=== PATIENT | female | born 1960 | race Caucasian/White ===

== ENCOUNTER 2018-01-14 09:45 | Day surgery (SDC) | payer OTHER ==
[~2018-01-14] VITALS: Ht 167.6 cm; Wt 113.4 kg
[~2018-01-14 09:45] MED LIST: AMBIEN10 MG PO; FLUOXETINE HCL20 M1 PO; LOSARTAN POTASS50 MG PO; OMEPRAZOLE20 MG PO; PRAVASTATIN SOD80 MG PO
[2018-01-14] MEDS ORDERED: ACETAMINOPHEN-1 EACH PO (10:14)
[2018-01-14] MEDS ORDERED: NORCO 5-325 TA1 EACH PO (10:15)
--- NOTE | 2018-01-14 14:11 | NUR ---
ARRIVED TO PACU WITH IV IN PLACE IN LEFT HAND
--- NOTE | 2018-01-14 14:20 | NUR ---
01/14/18 1420 Anthony Herrera ARRIVED TO PACU MOANING. RECENTLY TREATED FOR PAIN PER INFECTION CONTROL MANAGER. C/O NAUSEA. VERBAL ORDERS RECIEVED TO START ALBUTEROL TX. MEDICATED FOR NAUSEA PER EMAR WITH 12.5MG PHENERGAN. SLEAPING NOW. RESPONDS TO VOICE. DENIES ANY PAIN AT THIS POINT. REORIENTED PT TO TIME AND SITUATION.
--- NOTE | 2018-01-14 15:14 | NUR ---
PT ARRIVES TO DS RM 10 FROM PACU AWAKE AND ALERT. PT DENIES NAUSEA ON ARRIVAL BUT IS PAINFUL, RATING PAIN 5/10 IN RUQ. VSS. PT STATES PAIN RISING TO 7/10, PT GIVEN IV DILAUDID. PT PROVIDED ICED WATER, CRACKERS AND FRESH ICE PACK. DAUGHTER CALLED PER PT REQUEST. PHONE IN PT ROOM IS USED SO THAT PT CAN SPEAK TO FAMILY REGARDING DC. WILL CONTINUE TO MONITOR.
[2018-01-14] MEDS ORDERED: NORCO 10-325 T1 EACH PO (15:53)
[2018-01-14] MEDS ORDERED: PROMETHAZINE HC25 M1 PO (15:54)
[2018-01-14] MEDS ORDERED: ZOFRAN4 MG PO (15:55)
--- NOTE | 2018-01-14 16:25 | NUR ---
1615: IV DC'D WNL. TIP IN TACT. PT TOLERATED WELL. UNABLE TO CHART DC OF IV IN [employer]. 1620: DC CRITERIA MET ALTHOUGH PT DID NOT VOID PRIOR TO DC. DC INSTRUCTIONS GIVEN IN PRESENCE OF PT AND DAUGHTER. ALL QUESTIONS ANSWERED. MED SCRIPT GIVEN TO PT TO TAKE TO PHARMACY. PT DC'S VIA WC FROM DS RM 10 WITH DAUGHTER AND MOTHER.
--- NOTE | 2018-01-15 11:12 | OR ---
[facility] [address], [place] [address] Signed DATE OF OPERATION: 01/14/2018 SURGEON: Ayo Bhatia MD PREOPERATIVE DIAGNOSES: 1. Chronic cholecystitis. 2. Biliary dyskinesia. POSTOPERATIVE DIAGNOSES: 1. Chronic cholecystitis with cholelithiasis (2 mm). 2. Biliary dyskinesia. PROCEDURE PERFORMED: Laparoscopic cholecystectomy with intraoperative cholangiogram. ESTIMATED BLOOD LOSS: None. FINDINGS: Mariela had adhesions to her previous open appendectomy incision in the right lower quadrant as well as to the full length of her epigastric incision as well. In addition, the intraoperative cholangiogram was unremarkable. When the gallbladder was opened, we noticed several small 2 mm yellow adherent cholesterol stones. INDICATIONS: Mariela is a 57-year-old female, who over the last 3-4 months has been having significant right upper quadrant abdominal pain radiating through to her back. She said it has been getting worse as the days go by and it is worse when she eats. Her primary care provider ordered an ultrasound that was unremarkable. Her HIDA scan revealed her gallbladder ejection fraction at 15%. This injection of CCK reproduced her symptoms. She told me, it was 2 days of misery after the CCK. She was then asked to see me as a general surgeon. I met with Mariela in the office. I gave her a booklet on the gallbladder. We discussed the location and function of the gallbladder. We discussed laparoscopic versus open cholecystectomy. We reviewed her previous abdominal surgeries and the fact that could give us some technical issues. She understands the expected intraop and postop course. The risk of surgery including, but not limited to bleeding, infection, scarring, change in contour of the skin, damage to bowel, damage to main bile duct, incisional hernias, and other unforeseen comorbidities. She had expressed understanding and wished to proceed. Electronically Signed By: AYO BHATIA MD 01/15/18 1112 PATIENT NAME: MARIELA SANCHEZ OPERATIVE REPORT DATE OF : 60 REPORT #: [id number] PHYSICIAN: AYO BHATIA MD PCP: MARIELA GOLDBERG REPORT IS CONFIDENTIAL AND NOT TO BE RELEASED WITHOUT AUTHORIZATION [facility] [address], [place] [address] Signed PROCEDURE NOTE: Mariela was taken into our operating room and placed in the supine position under general endotracheal tube anesthesia. She was given preoperative antibiotics along with subcutaneous heparin. SCDs were utilized. She was then prepped and draped in the usual sterile fashion. We placed the Kay trocar under direct visualization below the umbilicus without difficulty. She had classic omental adhesions to her previous open appendectomy incision in the right lower quadrant. In a similar fashion, she had omentum adherent to the full length of her midline epigastric incision as well. We used the angled scope and we were able to easily pass that up into the right upper quadrant. By turning the scope, we could easily see we had clear access in the epigastric region down to our gallbladder. Consequently, we went ahead and placed our two right subcostal trocar sites along with her subxiphoid trocar site under direct visualization without difficulty. The gallbladder was then grasped and elevated in the right upper quadrant. The triangle of Calot was dissected free, and the intraoperative cholangiocatheter was inserted into the duct. The intraoperative cholangiogram was then performed and found to be unremarkable. The cystic duct stump was then secured with 3 sequential clips. The gallbladder was then carefully removed from the gallbladder fossa with the help of the cautery. We placed a clip on the cystic artery and it had been divided. The gallbladder was then placed into an EndoCatch bag. The right upper quadrant was irrigated and suctioned out until clear. We used our laparoscopic suturing device to pass 0 Vicryl suture on either side of the fascia of the subxiphoid trocar site. This was tied down to close this fascia primarily. After this, all the gas was allowed to escape and all the remaining trocars were removed along with the gallbladder. The gallbladder was opened on the back table by our circulating nurse. We saw several 2 mm adherent yellow cholesterol stones on the gallbladder wall. After this, we closed the fascia of the infraumbilical trocar site with interrupted [id number] 0 Vicryl suture. Local anesthetic was injected into all trocar sites. Each trocar site was then irrigated and suctioned out until clear. The skin and dermis of each trocar site was then closed with interrupted 3-0 subcuticular Monocryl sutures. Dry gauze and tape were applied to all incisions. Mariela was then awakened from anesthesia, extubated in the OR, and taken to recovery room in stable condition. Ayo Bhatia MD ALB/MODL /[id number] Electronically Signed By: AYO BHATIA MD 01/15/18 1112 PATIENT NAME: MARIELA SANCHEZ OPERATIVE REPORT DATE OF : 60 REPORT #: [id number] PHYSICIAN: AYO BHATIA MD PCP: MARIELA GOLDBERG REPORT IS CONFIDENTIAL AND NOT TO BE RELEASED WITHOUT AUTHORIZATION [address] [place], [place] [address] Signed cc: MILTON King MD Copies: MARIELA GOLDBERG ANDREW L MD ~ Electronically Signed By: AYO BHATIA MD 01/15/18 1112 PATIENT NAME: MARIELA SANCHEZ OPERATIVE REPORT DATE OF : 60 REPORT #: [id number] PHYSICIAN: AYO BHATIA MD PCP: MARIELA GOLDBERG REPORT IS CONFIDENTIAL AND NOT TO BE RELEASED WITHOUT AUTHORIZATION
== END 2018-01-14 16:20 | disposition home or self-care (01) ==
LOC: DS 09:45
PROVIDERS: Colon & Rectal Surgery
PROC: BF13YZZ Fluoroscopy of Gallbladder and Bile Ducts using Other Contrast (ICD-10-PCS; 2018-01-14)
PROC: 0FT44ZZ Resection of Gallbladder, Percutaneous Endoscopic Approach (ICD-10-PCS; principal; 2018-01-14 11:30)
DX: K81.2 Acute cholecystitis with chronic cholecystitis (principal); K82.8 Other specified diseases of gallbladder; I10 Essential (primary) hypertension; K21.9 Gastro-esophageal reflux disease without esophagitis; E78.5 Hyperlipidemia, unspecified; E55.9 Vitamin D deficiency, unspecified; E66.9 Obesity, unspecified; M19.90 Unspecified osteoarthritis, unspecified site; F41.9 Anxiety disorder, unspecified; F32.9 Major depressive disorder, single episode, unspecified; K76.0 Fatty (change of) liver, not elsewhere classified; E66.01 Morbid (severe) obesity due to excess calories; F17.210 Nicotine dependence, cigarettes, uncomplicated; Z88.8 Allergy status to other drugs, medicaments and biological substances; Z79.899 Other long term (current) drug therapy
CPT/HCPCS: 00790; 74300; J0330; J0690; J1100; J1170; J1644; J1885; J2250; J2405; J2550; J2704; J3010; J7120; Q9967

== ENCOUNTER 2018-11-21 07:55 | Emergency (ER) | payer OTHER ==
[~2018-11-21] VITALS: Ht 167.6 cm; Wt 113.4 kg
[~2018-11-21 07:55] MED LIST changes: +ACETAMINOPHEN-1 EACH PO; +NORCO 10-325 T1 EACH PO; +NORCO 5-325 TA1 EACH PO; +PROMETHAZINE HC25 M1 PO; +ZOFRAN4 MG PO
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
[2018-11-21] MEDS ORDERED: MOBIC7.5 MG PO (09:45)
[2018-11-21] MEDS ORDERED: CYCLOBENZAPRINE10 MG PO (09:45)
== END 2018-11-21 10:10 | disposition home or self-care (01) ==
LOC: ED 07:55
DX: R07.89 Other chest pain (principal); F17.200 Nicotine dependence, unspecified, uncomplicated; Z88.0 Allergy status to penicillin; Z88.8 Allergy status to other drugs, medicaments and biological substances; Z79.899 Other long term (current) drug therapy; Z90.710 Acquired absence of both cervix and uterus; V89.2XXA Person injured in unspecified motor-vehicle accident, traffic, initial encounter
CPT/HCPCS: 71260; 99285-25; J2270; Q9967

== ENCOUNTER 2019-05-21 08:29 | Emergency (ER) | payer OTHER ==
[~2019-05-21] VITALS: Ht 167.6 cm; Wt 117.0 kg
[~2019-05-21 08:29] MED LIST changes: +CHANTIX1 MG PO; +CYCLOBENZAPRINE10 MG PO; +MOBIC7.5 MG PO; +TURMERIC500 M2 PO
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
[2019-05-21] MEDS ORDERED: OXYCODONE HCL5 MG PO (11:02)
[2019-05-21] MEDS ORDERED: ONDANSETRON ODT8 MG PO (11:04)
== END 2019-05-21 12:22 | disposition home or self-care (01) ==
LOC: ED 08:29
DX: S42.291A Other displaced fracture of upper end of right humerus, initial encounter for closed fracture (principal); S42.211A Unspecified displaced fracture of surgical neck of right humerus, initial encounter for closed fracture; W01.0XXA Fall on same level from slipping, tripping and stumbling without subsequent striking against object, initial encounter; F17.200 Nicotine dependence, unspecified, uncomplicated; Z88.0 Allergy status to penicillin; Z88.8 Allergy status to other drugs, medicaments and biological substances; Z79.899 Other long term (current) drug therapy
CPT/HCPCS: 73030; 96374; 96375; 99283-25; J1170; J1885; J2405; J3010

== ENCOUNTER 2022-03-20 10:00 | Emergency (ER) | payer OTHER ==
[~2022-03-20] VITALS: Ht 167.6 cm; Wt 122.2 kg
[~2022-03-20 10:00] MED LIST changes: +ASPIRIN EC325 MG PO; +CELECOXIB200 MG PO; +NORCO 7.5-3251 EACH PO; +ONDANSETRON ODT8 MG PO; +OXYCODONE HCL5 MG PO; +SENNA LAX8.6 MG PO
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
[2022-03-20] MEDS ORDERED: DOXYCYCLINE HY100 MG PO (10:44)
[2022-03-20] MEDS ORDERED: BUPROPION HCL150 M2 PO (11:05)
== END 2022-03-20 11:09 | disposition home or self-care (01) ==
LOC: ED 10:00
DX: L03.211 Cellulitis of face (principal); F17.200 Nicotine dependence, unspecified, uncomplicated; Z88.0 Allergy status to penicillin; Z88.8 Allergy status to other drugs, medicaments and biological substances
CPT/HCPCS: 99283

== ENCOUNTER 2023-03-01 09:37 | Emergency (ER) | payer OTHER | END 2023-03-01 12:23 | disposition home or self-care (01) | LOC: ED 09:37 | DX: S61.412A Laceration without foreign body of left hand, initial encounter (principal); W26.0XXA Contact with knife, initial encounter; F17.200 Nicotine dependence, unspecified, uncomplicated; Z88.0 Allergy status to penicillin; Z88.8 Allergy status to other drugs, medicaments and biological substances; Z79.82 Long term (current) use of aspirin; Z79.899 Other long term (current) drug therapy; Z23 Encounter for immunization ==